=== PATIENT | male | born 1980 ===

== ENCOUNTER 2018-05-28 16:28 | Emergency (ER) | payer OTHER ==
[2018-05-28 16:57] VITALS: RESP 18; TEMP 98.8
[2018-05-28] MEDS ORDERED: Naproxen 550 mg Tab PO STA (17:20)
--- NOTE | 2018-05-28 17:37 | ED PDOC ---
Arrival/HPI - General Chief Complaint: Upper Extremity Problem/Injury Time Seen by Provider: 05/28/18 16:30 Historian: Patient - History of Present Illness Narrative History of Present Illness (Text): 05/28/18 17:33 A 38 year old male presents to the emergency department complaining of right hand pain/swelling/abrasions s/p punching wall. Patient reports he is left-hand dominant. Patient denies any numbness, decreased ROM, or any other complaints at this time. Past Medical History - Provider Review Nursing Documentation Reviewed: Yes - Infectious Disease Hx of Infectious Diseases: None - Psychiatric Hx Substance Use: No - Anesthesia Hx Anesthesia: No Family/Social History - Physician Review Nursing Documentation Reviewed: Yes Family/Social History: No Known Family HX Smoking Status: Unknown If Ever Smoked Hx Alcohol Use: No Hx Substance Use: No Allergies/Home Meds Allergies/Adverse Reactions: Allergies No Known Allergies Allergy (Verified 05/28/18 16:56) Review of Systems - Physician Review All systems were reviewed & negative as marked: Yes - Review of Systems Musculoskeletal: Other (swelling/abrasion/pain to right hand s/p punching wall; no decreased ROM.) Neurological: absent: Other (no numbness) Physical Exam Vital Signs Reviewed: Yes Vital Signs Temp Pulse Resp BP Pulse Ox 05/28/18 16:52 98.8 F 88 18 107/64 99 Temperature: Afebrile Blood Pressure: Normal Pulse: Regular Respiratory Rate: Normal Appearance: Positive for: Well-Appearing, Non-Toxic, Comfortable Pain Distress: None Mental Status: Positive for: Alert and Oriented X 3 - Systems Exam Upper Extremity: Present: Normal ROM, NORMAL PULSES, Tenderness (dorsal aspect right hand over fifth medicarpal area), Swelling (dorsal aspect right hand over fifth medicarpal area), Neurovascularly Intact, Capillary Refill < 2s, Deformity (dorsal aspect right hand over fifth medicarpal area), Other. No: Temperature Abnormalties Lower Extremity: Present: Normal Inspection Neurological: Present: GCS=15, CN II-XII Intact, Speech Normal, Motor Func Grossly Intact, Normal Sensory Function Skin: Present: Warm, Dry, Normal Color, Abrasion (dorsal aspect right hand over fifth medicarpal area on fifth digit pinky finger). No: Rashes Psychiatric: Present: Alert, Oriented x 3, Normal Insight, Normal Concentration Medical Decision Making ED Course and Treatment: 05/28/18 18:10 XR R hand : +fracture to the distal 5th metacarpal. XR results d/w the patient. Diagnosis of boxer fracture d/w the patient. Orthoglass sugar tong splint applied. Neurovascular intact post splint application. Advised to follow up with ortho referral in 1-2 days without fail. Advised to take medication as prescribed. Return to the emergency room at any time for any new or worsening symptoms. Patient states he fully agrees with and understands discharge instructions. States that he agrees with the plan and disposition. Verbalized and repeated discharge instructions and plan. I have given the patient opportunity to ask any additional questions. 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 - Scribe Statement The provider has reviewed the documentation as recorded by the Stacy Meek Provider Scribe Attestation: All medical record entries made by the Stacy were at my direction and personally dictated by me. I have reviewed the chart and agree that the record accurately reflects my personal performance of the history, physical exam, medical decision making, and the department course for this patient. I have also personally directed, reviewed, and agree with the discharge instructions and disposition. Disposition/Present on Arrival - Present on Arrival Any Indicators Present on Arrival: No History of DVT/PE: No History of Uncontrolled Diabetes: No Urinary Catheter: No History of Decub. Ulcer: No History Surgical Site Infection Following: None - Disposition Have Diagnosis and Disposition been Completed?: Yes Diagnosis: Boxers fracture Disposition: HOME/ ROUTINE Disposition Time: 18:00 Patient Plan: Discharge Condition: STABLE Discharge Instructions (ExitCare): Boxer's Fracture Additional Instructions: Thank you for letting us take care of you today. You were treated for boxer fracture. The emergency medical care you received today was directed at your acute symptoms. If you were prescribed any medication, please fill it and take as directed. It may take several days for your symptoms to resolve. Return to the Emergency Department if your symptoms worsen, do not improve, or if you have any other problems. Please contact your doctor in 2 days for re-evaluation and follow up / or call one of the physicians/clinics you have been referred to that are listed on the Patient Visit Information form that is included in your discharge packet. Bring any paperwork you were given at discharge with you along with any medications you are taking to your follow up visit. Our treatment cannot replace ongoing medical care by a primary care provider (PCP) outside of the emergency department. Thank you for allowing the [facility] team to be part of your care today. If you had an X-Ray : A Radiologist will review the ED reading if any change in treatment is needed we will contact you. Prescriptions: Naproxen 500 mg PO BID PRN #20 tablet PRN Reason: Pain, Moderate (4-7) Referrals: PCP,NO [Primary Care Provider] - Follow up with primary Ozzie Mathews MD [Staff Provider] - Follow up with primary Forms: [employer] (Latvian), WORK NOTE
--- NOTE | 2018-05-28 18:41 | RAD ---
PROCEDURE: Right Hand Radiographs. HISTORY: pain COMPARISON: None. FINDINGS: BONES: A transverse fracture through the distal right 5th metacarpal metaphysis is identified with palmar angulation of the distal fracture fragment compatible the boxer's fracture. No dislocation. No additional fracture appreciable. JOINTS: Normal. No osteoarthritic changes. SOFT TISSUES: Moderate local soft tissue edema appreciated at the 5th metacarpal fracture site, distal metaphysis. OTHER FINDINGS: None. IMPRESSION: Boxer's fracture 5th metacarpal bone identified at distal metaphysis. No dislocation. Local soft tissue edema appears moderate.
[2018-05-28 19:20] VITALS: BP 129/71; PULSE 74; O2SAT 100
== END 2018-05-28 19:01 | disposition home or self-care (01) ==
LOC: ED 16:28
DX: S62.306A Unspecified fracture of fifth metacarpal bone, right hand, initial encounter for closed fracture (principal); W22.01XA Walked into wall, initial encounter